=== PATIENT | female | born 1990 | race African-American/Black ===

== ENCOUNTER 2019-06-30 14:54 | Inpatient (IN) | payer MEDICAID ==
[~2019-06-30] VITALS: Ht 167.6 cm; Wt 89.6 kg
[~2019-06-30 14:54] MED LIST: BACITRACIN15 GM TOPIC
[2019-06-30 14:56] VITALS: BP 110/82
[2019-06-30] MEDS ORDERED: NKM (14:56)
--- NOTE | 2019-06-30 14:58 | NUR ---
ED Nurse Note: Pt present to ER from home due to Rt lower leg insect bite and pain on the site since last night. pt aao x4 and ambulatory but assisted by WC due to unable to walke at this moment. pt crying and moaning for pain 07/18. cooperative to assessment. Rt lower leg swallen and red from knee to toes. pt is in gown and on cardiac catheterization technologist.
--- NOTE | 2019-06-30 15:06 | Emergency Room Report ---
History of Present Illness General Chief Complaint: Skin Rash/Abscess Source: Patient Present Illness HPI 28-year-old female presents after increased right lower extremity swelling. Patient reports having recent increased discomfort to the area. She states this began as a spider bite. She denies prior history of abscess. She denies any fever. She had not been vomiting. She reports having increased pain to the lower leg as well as to the foot. Gradual onset.Denies being diabetic. She denies similar episodes in the past. Throbbing pain to lower extremity. Allergies: Coded Allergies: MORPHINE (Verified Allergy, Unknown, 06/30/19) PINEAPPLE (Verified Allergy, Unknown, 06/30/19) Patient History Past Medical History: see triage record Reviewed Nursing Documentation: PMH: Agreed; PSxH: Agreed Nursing Documentation-PMH Past Medical History: No History, Except For Hx Cardiac Problems: No Hx Hypertension: No Hx Pacemaker: No Hx Asthma: No Hx COPD: No Hx Diabetes: No Hx Cancer: No Hx Gastrointestinal Problems: No Hx Dialysis: No History Of Psychiatric Problem: Yes - PTSD Hx Neurological Problems: No Hx Cerebrovascular Accident: No Hx Seizures: No Review of Systems All Other Systems: negative except mentioned in HPI Physical Exam Vital Signs Date Time Temp Pulse Resp B/P (MAP) Pulse Ox O2 Delivery O2 Flow Rate FiO2 06/30/19 14:56 98.6 107 18 110/82 98 Room Air General Appearance: well appearing, no apparent distress, alert, GCS 15 Head: normocephalic, atraumatic ENT: hearing grossly normal, normal voice Neck: full range of motion, supple Respiratory: lungs clear, no respiratory distress, speaking full sentences Cardiovascular #1: normal inspection Gastrointestinal: normal inspection Musculoskeletal: swelling - right leg, dorsum Neurologic: alert, oriented x3, responsive, normal gait Psychiatric: mood/affect normal Skin: other - right lower leg extremity swelling and erythema foot Medical Decision Making Diagnostic Impression: Primary Impression: Left leg cellulitis ER Course Presented for right lower extremity swelling. Differential diagnosis include was not limited to abscess, deep venous thrombosis, necrotizing fasciitis, cellulitis among others. Because of complexity of patient's case laboratory tests and imaging studies were ordered.Laboratory testing showed normal white blood count. Patient was noted to have some significant soft tissue swelling to the left lower extremity. There does not appear to be any definite abscess at this time. Patient was given IV antibiotics. Dr. Ashwin Law was contacted for inpatient management due to panel physician Labs Test 06/30/19 15:15 06/30/19 16:00 White Blood Count 10.2 K/UL (4.8-10.8) Red Blood Count 3.99 M/UL (4.20-5.40) Hemoglobin 12.0 G/DL (12.0-16.0) Hematocrit 36.3 % (37.0-47.0) Mean Corpuscular Volume 91 FL (80-99) Mean Corpuscular Hemoglobin 30.1 PG (27.0-31.0) Mean Corpuscular Hemoglobin Concent 33.1 G/DL (32.0-36.0) Red Cell Distribution Width 11.1 % (11.6-14.8) Platelet Count 207 K/UL (150-450) Mean Platelet Volume 6.8 FL (6.5-10.1) Neutrophils (%) (Auto) 74.7 % (45.0-75.0) Lymphocytes (%) (Auto) 16.7 % (20.0-45.0) Monocytes (%) (Auto) 6.6 % (1.0-10.0) Eosinophils (%) (Auto) 1.4 % (0.0-3.0) Basophils (%) (Auto) 0.7 % (0.0-2.0) Sodium Level 140 MMOL/L (136-145) Potassium Level 3.6 MMOL/L (3.5-5.1) Chloride Level 104 MMOL/L (98-107) Carbon Dioxide Level 26 MMOL/L (21-32) Anion Gap 10 mmol/L (5-15) Blood Urea Nitrogen 15 mg/dL (7-18) Creatinine 0.9 MG/DL (0.55-1.30) Estimat Glomerular Filtration Rate > 60 mL/min (>60) Glucose Level 121 MG/DL (74-106) Lactic Acid Level 1.10 mmol/L (0.4-2.0) Calcium Level 8.8 MG/DL (8.5-10.1) Phosphorus Level 2.8 MG/DL (2.5-4.9) Magnesium Level 1.8 MG/DL (1.8-2.4) Total Bilirubin 0.5 MG/DL (0.2-1.0) Aspartate Amino Transf (AST/SGOT) 21 U/L (15-37) Alanine Aminotransferase (ALT/SGPT) 14 U/L (12-78) Alkaline Phosphatase 74 U/L (46-116) Total Creatine Kinase 236 U/L (26-308) Creatine Kinase MB 2.4 NG/ML (0.0-3.6) Creatine Kinase MB Relative Index 1.0 Troponin I 0.000 ng/mL (0.000-0.056) Total Protein 7.2 G/DL (6.4-8.2) Albumin 3.2 G/DL (3.4-5.0) Globulin 4.0 g/dL Albumin/Globulin Ratio 0.8 (1.0-2.7) Urine Color Yellow Urine Appearance Slightly cloudy Urine pH 6 (4.5-8.0) Urine Specific [place] 1.020 (1.005-1.035) Urine Protein 1+ (NEGATIVE) Urine Glucose (UA) Negative (NEGATIVE) Urine Ketones 1+ (NEGATIVE) Urine Blood 3+ (NEGATIVE) Urine Nitrite Negative (NEGATIVE) Urine Bilirubin Negative (NEGATIVE) Urine Urobilinogen 1 MG/DL (0.0-1.0) Urine Leukocyte Esterase 1+ (NEGATIVE) Urine RBC 5-10 /HPF (0 - 2) Urine WBC 2-4 /HPF (0 - 2) Urine Squamous Epithelial Cells Few /LPF (NONE/OCC) Urine Bacteria Many /HPF (NONE) Last Vital Signs Date Time Temp Pulse Resp B/P (MAP) Pulse Ox O2 Delivery O2 Flow Rate FiO2 06/30/19 14:56 97.5 105 21 110/83 (92) 96 Room Air Status: unchanged Disposition: ADMITTED INPATIENT Condition: Stable Ad Barrientos MD Jun 30, 2019 15:06
[2019-06-30] MEDS ORDERED: Vancomycin 1.5 GM in NS 275 ML IVPB ONE (15:15)
[2019-06-30] MEDS ORDERED: Cefepime HCl 2 GM in NS 110 ML IV SCH (15:15)
[2019-06-30 15:32] LABS: BASOPHILS % (AUTO) 0.7 % (0.0-2.0); EOSINOPHILS % (AUTO) 1.4 % (0.0-3.0); HEMATOCRIT 36.3 % (37.0-47.0); LYMPHOCYTES % (AUTO) 16.7 % (20.0-45.0); MEAN CORPUSCULAR VOLUME 91 FL (80-99); MONOCYTES % (AUTO) 6.6 % (1.0-10.0); NEUTROPHILS % (AUTO) 74.7 % (45.0-75.0); PLATELET COUNT 207 K/UL (150-450); RED BLOOD COUNT 3.99 M/UL (4.20-5.40); RED CELL DISTRIBUTION WIDTH 11.1 % (11.6-14.8); WHITE BLOOD COUNT 10.2 K/UL (4.8-10.8)
--- NOTE | 2019-06-30 15:45 | NUR ---
ED Nurse Note: chest x-ray at bedside.
--- NOTE | 2019-06-30 15:51 | NUR ---
ED Nurse Note: ERMD at bedside for US.
[2019-06-30 15:58] LABS: ANION GAP 10 mmol/L (5-15); BLOOD UREA NITROGEN 15 mg/dL (7-18); CALCIUM 8.8 MG/DL (8.5-10.1); CARBON DIOXIDE 26 MMOL/L (21-32); CHLORIDE 104 MMOL/L (98-107); CREATININE 0.9 MG/DL (0.55-1.30); POTASSIUM 3.6 MMOL/L (3.5-5.1); SODIUM 140 MMOL/L (136-145)
[2019-06-30 16:11] LABS: ALANINE AMINOTRANSFERASE 14 U/L (12-78); ALBUMIN 3.2 G/DL (3.4-5.0); ALBUMIN/GLOBULIN RATIO 0.8 (1.0-2.7); ALKALINE PHOSPHATASE 74 U/L (46-116); ASPARTATE AMINO TRANSFERASE 21 U/L (15-37); BILIRUBIN,TOTAL 0.5 MG/DL (0.2-1.0); CKMB 2.4 NG/ML (0.0-3.6); CREATINE KINASE 236 U/L (26-308); PHOSPHORUS 2.8 MG/DL (2.5-4.9)
--- NOTE | 2019-06-30 16:11 | NUR ---
ED Nurse Note: per ERMD pt is ok to eat and drink. sandwich and juice provided.
[2019-06-30 16:35] LABS: APPEARANCE,URINE SLIGHTLY CLOUDY; BILIRUBIN, URINE NEGATIVE (NEGATIVE); GLUCOSE, URINE (UA) NEGATIVE (NEGATIVE); KETONES,URINE 1+ (NEGATIVE); LEUKOCYTE ESTERASE ,URINE 1+ (NEGATIVE); NITRITE,URINE NEGATIVE (NEGATIVE); PH,URINE 6 (4.5-8.0); PROTEIN,URINE 1+ (NEGATIVE); UROBILINOGEN,URINE 1 MG/DL (0.0-1.0)
[2019-06-30 16:38] LABS: COLOR,URINE YELLOW
--- NOTE | 2019-06-30 18:17 | NUR ---
ED Nurse Note: report given to MIHAELA Claire
--- NOTE | 2019-06-30 18:23 | NUR ---
ED Nurse Note: pt left unit with 1 facilities operations technician in stable condition.
[2019-06-30 18:30] VITALS: BP 105/71
--- NOTE | 2019-06-30 18:30 | NUR ---
NURSE NOTES: Patient came to the unit via aldorliz. Pt a/o x 4, in bed. Denies any pain at this time. Lt leg is swollen. Unit orientation was given. Bed in lowest position, call light within reach. Will continue to monitor.
--- NOTE | 2019-06-30 19:20 | NUR ---
HAND-OFF: Report given to MIHAELA Quinones.
[2019-06-30 20:00] VITALS: BP 103/68
--- NOTE | 2019-06-30 20:30 | NUR ---
NURSE NOTES: Called Dr Law for admission orders, patient asleep in bed, red spots noted on bilateral ankle-lower leg area. Patient heart rate elevated currently and pre-transfer from ER. Allergies noted. IV access asymptomatic, just finished vanco from ER. Will tko as she is "hard stick" according to report from ER.
--- NOTE | 2019-06-30 21:00 | NUR ---
NURSE NOTES: Patient admitted for Left leg cellulitis. Red, rash-like spots noted on bilateral lower legs and ankles. Patient unable to stand and ambulate to go to the bathroom due to leg pain and swelling. Bedpan used.
[2019-07-01] VITALS: BP 103/53
[2019-07-01 04:00] VITALS: BP 110/55
[2019-07-01] MEDS: [UNRECOGNIZED DRUG - OTHER] IVPB SCH ×2 (05:04→17:50)
[2019-07-01] MEDS: VANCOMYCIN IVPB SCH ×2 (05:04→17:50)
--- NOTE | 2019-07-01 07:26 | NUR ---
HAND-OFF: Report given to MIHAELA Ochoa.
--- NOTE | 2019-07-01 07:30 | NUR ---
NURSE NOTES: Received report from MIHAELA Quinones. Rounding done. Pt is sleeping. Rt leg still swollen. Rt AC is patent. Vancomycin is running at this time. Bed in lowest position, call light within reach. Will continue to monitor.
[2019-07-01 08:00] VITALS: BP 103/71
[2019-07-01] MEDS: Heparin 5000 units/ml inj SUBQ SCH ×2 (08:27→21:08)
--- NOTE | 2019-07-01 11:00 | History and Physical Report ---
DATE OF ADMISSION: 06/30/2019 CHIEF COMPLAINT: Right leg cellulitis. HISTORY OF PRESENT ILLNESS: The patient is a 28-year-old female. No past medical history. Believes that she received some type of a bite. She was well until the day prior to admission when she developed worsening pain, erythema, and swelling of the right leg. She presented to the ER where she was diagnosed with cellulitis. She has been started on antibiotic therapy. She is now admitted for further evaluation and care. PAST MEDICAL HISTORY: As above. PAST SURGICAL HISTORY: None. CURRENT MEDICATIONS: None. ALLERGIES: Include morphine and pineapple. FAMILY HISTORY: Noncontributory. SOCIAL HISTORY: There is no known history of tobacco, ethanol, or drugs. REVIEW OF SYSTEMS: Unremarkable except for right leg pain. PHYSICAL EXAMINATION: VITAL SIGNS: Temperature 99.3, pulse 110, respirations 20, and blood pressure 110/55. GENERAL: The patient is in no distress. HEART: Regular. LUNGS: Clear. ABDOMEN: Soft. EXTREMITIES: Right leg is noted to be swollen with erythema extending from the mid ruiz down to the forefoot. LABORATORY DATA: Laboratories were reviewed. ASSESSMENT: This is a 28-year-old female admitted with complaints of cellulitis of the right lower extremity. PLAN: IV antibiotics. Follow up cultures. Ashwin Lwa M.D. DR: NIXON JOB#: [id number] CC:
--- NOTE | 2019-07-01 11:16 | Diagnostic Imaging Report ---
Indication: Dyspnea Comparison: None A single view chest radiograph was obtained. Findings: Cardiomediastinal appearance is within normal limits for age. The lungs are clear. Pulmonary vascularity is appropriate. The diaphragmatic contour is smooth and costophrenic angles are sharp. No pleural effusions are identified. The bones are unremarkable. Impression: No acute findings
[2019-07-01 12:00] VITALS: BP 109/72
[2019-07-01] MEDS: Zoysn 3.37gm in NS 100ML IVPB SCH ×2 (14:14→21:12)
[2019-07-01 16:00] VITALS: BP 103/65
--- NOTE | 2019-07-01 16:39 | NUR ---
CASE MANAGEMENT:REVIEW 28 YR OLD FEMALE PRESENTED TO ER CC: LEG PAIN, SWELLING AND REDNESS...SPIDER BITE SI: LT LEG CELLULITIS 97.6 105 21 110/83 96% ON RA IS: IV VANCOMYCIN X1 IV CEFEPIME X1 IV FLAGYL X1 1L NS BOLUS CHEST XRAY URINE CX BLOOD CX TO MED/SURG [facility]
--- NOTE | 2019-07-01 19:41 | NUR ---
HAND-OFF: Report given to MIHAELA Vega.
--- NOTE | 2019-07-01 19:52 | Cardiology Report ---
APPROVED REPORT EKG Measurement Heart [id number] Sinus tachycardia Otherwise normal ECG
[2019-07-01 20:00] VITALS: BP 109/67
--- NOTE | 2019-07-01 22:44 | NUR ---
HAND-OFF: Report given to MIHAELA Rosenthal. Patient in bed, VS stable.
[2019-07-02] VITALS: BP 108/68
[2019-07-02 03:54] VITALS: BP 98/69
[2019-07-02] MEDS: Zoysn 3.37gm in NS 100ML IVPB SCH ×3 (05:12→21:43)
[2019-07-02] MEDS: VANCOMYCIN IVPB SCH (06:40)
[2019-07-02] MEDS: [UNRECOGNIZED DRUG - OTHER] IVPB SCH (06:40)
--- NOTE | 2019-07-02 06:59 | NUR ---
nurse's notes: no significant changes noted since nursing care was transferred to this rn; still noted was cellulitis on the right lower leg near the ankle and on the dorsal aspect of the right foot; all scheduled iv abx given. no complaints of pain. will continue to monitor.
[2019-07-02 07:58] VITALS: BP 103/67
--- NOTE | 2019-07-02 08:00 | NUR ---
NURSE NOTES:BEDSIDE ROUNDS DONE,PT.ASLEEP LYING ON HER LEFT SIDE,ROOM AIR,NAD.IV SITE PATENT.WILL CONTINUE TO MONITOR.
--- NOTE | 2019-07-02 08:57 | General Progress Note ---
Assessment/Plan Status: stable, progressing Assessment/Plan: iv abx till tomorrow po tomorrow dc tomorrow Subjective ROS Limited/Unobtainable: No Constitutional: Reports: no symptoms HEENT: Reports: no symptoms Cardiovascular: Reports: no symptoms Respiratory: Reports: no symptoms Gastrointestinal/Abdominal: Reports: no symptoms Genitourinary: Reports: no symptoms Neurologic/Psychiatric: Reports: no symptoms Endocrine: Reports: no symptoms Hematologic/Lymphatic: Reports: no symptoms Allergies: Coded Allergies: MORPHINE (Verified Allergy, Unknown, 06/30/19) PINEAPPLE (Verified Allergy, Unknown, 06/30/19) All Systems: reviewed and negative except above Subjective foot still pain full and swollen- but less. cant walk due to pain Objective Last 24 Hour Vital Signs Date Time Temp Pulse Resp B/P (MAP) Pulse Ox O2 Delivery O2 Flow Rate FiO2 07/02/19 07:58 98.1 81 20 103/67 (79) 97 07/02/19 03:54 97.6 93 18 98/69 (79) 99 07/02/19 00:00 98.1 94 16 108/68 (81) 98 07/01/19 21:00 Room Air 07/01/19 20:00 98.5 76 18 109/67 (81) 99 07/01/19 16:00 98.7 74 17 103/65 (78) 99 07/01/19 12:00 97.7 63 18 109/72 (84) 99 07/01/19 09:00 Room Air Intake and Output 07/01/19 07/02/19 19:00 07:00 Intake Total 350.0 ml 300 ml Balance 350.0 ml 300 ml Intake Oral 240 ml 300 ml IV Total 110.0 ml # Voids 2 Laboratory Tests 07/02/19 04:00: Vancomycin Level Trough 7.9 Height (Feet): 5 Height (Inches): 6.00 Weight (Pounds): 197 Objective right foot painful red and swollen. +erythema Ashwin Law MD Jul 02, 2019 08:57
[2019-07-02] MEDS: Heparin 5000 units/ml inj SUBQ SCH ×2 (09:10→21:41)
--- NOTE | 2019-07-02 09:43 | NUR ---
HAND-OFF: Report given to FAN CHAIREZ. RE:CONTINUITY OF CARE.BEDSIDEV ROUNDS DONE PT ASLEEP STABLE..
--- NOTE | 2019-07-02 11:13 | NUR ---
NURSE NOTES: Pt currently sleeping. Antibiotics given , pt has no noted dermatological side effects at this time. Able to reposition self . Current plan will be followed
[2019-07-02 12:00] VITALS: BP 108/71
--- NOTE | 2019-07-02 13:09 | NUR ---
CASE MANAGEMENT:REVIEW 07/02/19 SI: LT LEG CELLULITIS. SPIDER BITE 98.1 81 20 108/71 97% ON RA IS: IV VANCOMYCIN Q8HRS IV ZOSYN Q8HRS HEPARIN SQ Q12 : MED/SURG 3 E[facility] DCP: FROM HOME
[2019-07-02] MEDS ORDERED: Vancomycin 1.25gm/NS Premix 275 ML IVPB SCH (14:00)
[2019-07-02] MEDS ORDERED: VANCOMYCIN IVPB SCH (14:00)
[2019-07-02] MEDS ORDERED: [UNRECOGNIZED DRUG - OTHER] IVPB SCH (14:00)
--- NOTE | 2019-07-02 14:27 | NUR ---
NURSE NOTES: Pt is sleeping with male partner at bedside, pt body laying on him. Pt rt foot is severely reddened, and swollen. Pt has a large scab to shit Pt attempting to walk to restroom " I could not walk before, but I want to try" As soon as pt stood up her faced cringed with pain. Walker provided, and assisted, to restroom. Pt stated she has kids at home and she wants to leave right now. Informed that there were no Dr orders for discharge , and the appearance of her foot staying may be beneficial to her health. Current plan with use of 2 antibiotics explained. Current plan will be followed
[2019-07-02 16:00] VITALS: BP 102/74
[2019-07-02] MEDS ORDERED: Vancomycin 1.25gm/NS Premix IVPB SCH (17:00)
--- NOTE | 2019-07-02 19:06 | NUR ---
HAND-OFF: Report given to Report given to Matt CHAIREZ made aware of pt request to go home despite of rt foot being extremely swollen and red, pt barely can walk. Required use of walker. Informed that orders for pending discharge tomorrow, but she can leave AMA. pt nodded no. Current paln will be follwed
--- NOTE | 2019-07-02 19:15 | NUR ---
NURSE NOTES: Report taken from MIHAELA Huntley. Patient is asleep, arousable by name and light touch. Family at bedside, A&Ox4. No signs of distress on room air. No complaints of pain when resting. Pain increases with palpation and movement 6/10. Encourage her to ambulate with walker. Rt Leg red, warm, and swollen from mid-calf down, continue to monitor. IV sites c/d/i and patent, currently running AchaLao and iCouchn. Bed in lowest position, call light within reach.
[2019-07-02 20:00] VITALS: BP 110/79
[2019-07-03] MEDS ORDERED: Vancomycin 1.25gm/NS Premix 275 ML IVPB SCH (06:00)
[2019-07-03] MEDS: Zoysn 3.37gm in NS 100ML IVPB SCH (06:05)
--- NOTE | 2019-07-03 07:20 | NUR ---
HAND-OFF: Report given to MIHAELA Huntley. Patient is asleep and stable.
[2019-07-03] MEDS ORDERED: DOXYCYCLINE HY100 M6 PO (07:36)
[2019-07-03 08:00] VITALS: BP 101/62
--- NOTE | 2019-07-03 08:45 | NUR ---
NURSE NOTES: Discharge information given along with prescription. Pt limping. Escorted downstairs with assistance via wheelchair. Pt in urgency to leave. Provided with instructions to complete antibiotics as instructed.
--- NOTE | 2019-07-03 08:46 | NUR ---
NURSE NOTES: Dr Law here gave orders for discharge. Pt has afternoon antibiotics , which she refused. Significant other at bedside. Informed of effective of IV antibiotics. Dr provided po antibiotics. Directions to take as directed and complete dose
[2019-07-03] MEDS ORDERED: Tubing IV Secondary IV ONE (08:59)
[2019-07-03] MEDS ORDERED: NS 275ml ONE (08:59)
--- NOTE | 2019-07-04 02:00 | Discharge Summary ---
DATE OF ADMISSION: 06/30/2019 DATE OF DISCHARGE: 07/03/2019 ADMISSION DIAGNOSIS: Right foot cellulitis. DISCHARGE DIAGNOSIS: Right foot cellulitis. HOSPITAL COURSE: This is a pleasant female, who presented with complaints of right foot cellulitis. She received intravenous antibiotics. Her cellulitis resolved within 48 hours. She will be discharged home to complete 7 more days of oral antibiotic therapy. She has been instructed to return for any worsening fevers, chills, or pain. DISCHARGE MEDICATIONS: Please see discharge medication list for discharge medications. DIET: Regular. ACTIVITIES: Ad-keyona. Ashwin Law M.D. DR: JACK JOB#: [id number] CC:
== END 2019-07-03 09:00 | disposition home or self-care (01) | DRG 383 ==
LOC: EMR 15:26 → 3E 16:52 → EDBEDREQ 17:41
DX: L03.116 Cellulitis of left lower limb (principal); Z88.6 Allergy status to analgesic agent
CPT/HCPCS: 36415; 71045; 80053; 80202; 81003; 82550; 82553; 83605; 83735; 84100; 84484; 85025; 87040; 87086; 87181; 93005; 96365; 96366; 96367; 96368; 99285